=== PATIENT | male | born 1950 | race Caucasian/White ===

== ENCOUNTER 2018-06-20 07:36 | Observation (INO) | payer OTHER ==
--- NOTE | 2018-06-19 16:46 | GHP ---
DATE OF ADMISSION: 06/20/2018 ADMISSION DIAGNOSIS: Benign prostatic hypertrophy with urinary obstruction. HISTORY OF PRESENT ILLNESS: This is a 67-year-old gentleman who has had urologic evaluation for tommy re symptomatic BPH. He has had an AUA score of up to 25. He has had PSAs levels ranging from 4 to t hat most recent of 6.3. He has been on tamsulosin for treatment, but without significant improvement . He had a cystoscopy revealed significant BPH with obstruction. He had a previous post photo vapor ization of prostate. He has had recurring symptoms and obstructions for 5+ years after the original PVP. He had a TRUS biopsy in 2006, that was benign. PAST MEDICAL HISTORY: BPH. SURGERIES: Laser prostatectomy, vasectomy, tonsillectomy, inguinal hernia, and bone surgery. MEDICATIONS: , tamsulosin. ALLERGIES: None. FAMILY HISTORY: Positive for prostate cancer. SOCIAL HISTORY: Nondrinker, nonsmoker. REVIEW OF SYSTEMS: Negative cardiac, respiratory, GI, and endocrine. PHYSICAL EXAMINATION: VITAL SIGNS: Stable. CHEST: Clear. HEART: Regular rate and rhythm. ABDOM EN: Normal. No organomegaly, rebound, or guarding. LOWER EXTREMITIES: Normal. His most recent PS A as of 01/09/2018, was 6.3. He has had a prostate volume on 03/27/2018, of 47.2 g. His transrectal ultrasound has been reviewed, and the intravesical lobe appears to be causing obstruction. He has s ome hypoechoic area on the left side that was identified but problems related to prior surgery, and h e has a ball valving intravesical lobe of the prostate. On cystoscopy, it is quite apparent that he has obstruction from BPH. He has a nice cavity from his prior procedure, but regrowth has shown that he has obstruction, and there is no apparent bladder tumors or stones, and he has had an ExoDx done preoperatively that was 15.62, which was felt to be normal based on his prior history of a biopsy. ASSESSMENT AND PLAN: At the present time, he is admitted for the transurethral resection of the pros chavez. Indication, complications, options have been discussed. Written and verbal consent were obtai perry, and he is admitted for the above procedure. /[id number]/MODL
[2018-06-20] MEDS ORDERED: ceFAZolin 2 GM/DEXTROSE 100 ML IV ONE (12:53)
[2018-06-20] MEDS ORDERED: LR 1,000 ML IV ONE (12:57)
[2018-06-20] MEDS ORDERED: LIDOCAINE 2% JELLY 20 ML (UROJECT) ONE (13:09)
--- NOTE | 2018-06-20 13:20 | PDHPUP ---
History & Physical Update H&P update statement: This history and physical update is based on an assessment of the patient which was completed after admission or registration (within 24 hours), but prior to the surgery/procedure. H&P update: H&P reviewed & patient examined, no change in patient's condition since H&P completed
[2018-06-20] MEDS ORDERED: MIDAZOLAM 2 MG/2 ML VIAL IVP ONE (13:21)
--- NOTE | 2018-06-20 13:22 | PDANEPAE ---
ANE Past Medical History - Cardiovascular History Hx Hypertension: No Hx Arrhythmias: No Hx Chest Pain: No Hx Coronary Artery / Peripheral Vascular Disease: No Hx CHF / Valvular Disease: No Hx Palpitations: No - Pulmonary History Hx COPD: No Hx Asthma/Reactive Airway Disease: No Hx Recent Upper Respiratory Infection: No Hx Oxygen in Use at Home: No Hx Sleep Apnea: No Sleep Apnea Screening Result - Last Documented: Negative - Neurologic History Hx Cerebrovascular Accident: No Hx Seizures: No Hx Dementia: No - Endocrine History Hx Diabetes: No - Renal History Hx Renal Disorders: No Renal History Comment: PROSTATE - Liver History Hx Hepatic Disorders: No - Neurological & Psychiatric Hx Hx Neurological and Psychiatric Disorders: No - Cancer History Hx Cancer: No - Congenital Disorder History Hx Congenital Disorders: No - GI History Hx Gastrointestinal Disorders: Yes Gastrointestinal History Comment: HX ULCERS. IBS - Other Health History Other Health History: NEG - Surgical History Prior Surgeries: GREEN LIGHT PROSTATE. SSUAN HERNIA ING. CATARACTS ANE Review of Systems Review of Systems: - Exercise capacity Exercise capacity: >=4 METS METS (RN): 5 METS ANE Patient History - Allergies Allergies/Adverse Reactions: No Known Allergies Allergy (Verified 06/05/18 10:11) - Home Medications Home medications: home medication list seen and reviewed Home Medications: Dicyclomine [Bentyl 10 MG (*)] 10 mg PO QID PRN 06/05/18 [Last Taken Unknown] Temazepam 06/12/18 [Last Taken Unknown] - NPO status NPO Status: no food or drink >8 hours NPO Since - Liquids (Date): 06/20/18 NPO Since - Liquids (Time): 08:30 NPO Since - Solids (Date): 06/20/18 NPO Since - Solids (Time): 04:30 - Anes Hx Anes Hx: no prior problems - Smoking Hx Smoking Status: Never smoked - Family Anes Hx Family Hx Anesthesia Complications: NEG ANE Labs/Vital Signs - Vital Signs Vital Signs: reviewed preoperatively; see RN documention for details Blood Pressure: 169/100 Heart Rate: 76 Respiratory Rate: 18 O2 Sat (%): 97 Height: 170.18 cm Weight: 58.967 kg ANE Physical Exam - Airway Neck exam: FROM Mallampati Score: Class 1 Mouth exam: normal dental/mouth exam - Pulmonary Pulmonary: clear to auscultation - Cardiovascular Cardiovascular: regular rate and rhythym - ASA Status ASA Status: II ANE Anesthesia Plan Anesthesia Plan: GA w LMA
[2018-06-20] MEDS ORDERED: PROPOFOL 200 MG/20 ML VIAL ONE (13:24)
[2018-06-20] MEDS ORDERED: fentaNYL 100 MCG/2 ML INJ ONE ×3 (13:24→15:25)
[2018-06-20] MEDS ORDERED: MIDAZOLAM 2 MG/2 ML VIAL ONE (13:26)
[2018-06-20] MEDS ORDERED: NALOXONE HCL 0.4 MG/ML INJ IVP PRN (14:40)
[2018-06-20] MEDS ORDERED: DIAZEPAM 5 MG/ML 1 ML SYR IVP PRN (14:40)
[2018-06-20] MEDS ORDERED: ONDANSETRON 4 MG/2 ML VIAL IVP PRN ×2 (14:40→14:50)
[2018-06-20] MEDS ORDERED: LR 500 ML IV PRN (14:40)
[2018-06-20] MEDS ORDERED: HYDROCODONE/APAP 5/325 TAB PO PRN (14:40)
[2018-06-20] MEDS ORDERED: HYDROmorphONE/DILAUDID 2 MG/ML INJ IVP PRN (14:40)
[2018-06-20] MEDS ORDERED: PHENYLEPHRINE HCL 100 MCG/ML SYR IVP PRN (14:40)
[2018-06-20] MEDS ORDERED: ALBUTEROL 3 ML DEYVIAL IH PRN (14:40)
[2018-06-20] MEDS ORDERED: MEPERIDINE 25 MG/0.5 ML AMP IVP PRN (14:40)
[2018-06-20] MEDS ORDERED: DEXAMETHASONE 4 MG/ML VIAL IVP PRN (14:40)
[2018-06-20] MEDS ORDERED: ACETAMINOPHEN 500 MG TAB PO PRN (14:40)
[2018-06-20] MEDS ORDERED: LABETALOL HCL 5 MG/ML 20 ML MDV IVP PRN (14:40)
[2018-06-20] MEDS ORDERED: oxyCODONE IR 5 MG TAB PO PRN (14:40)
[2018-06-20] MEDS ORDERED: PROMETHAZINE HCL 25 MG/ML INJ IVP PRN (14:40)
[2018-06-20] MEDS ORDERED: OPIUM/BELLADONNA ALKALO SUPP PR PRN (14:50)
[2018-06-20] MEDS ORDERED: ZOLPIDEM TARTRATE 5 MG TAB PO PRN (14:50)
[2018-06-20] MEDS ORDERED: ONDANSETRON DISINTEGRATING 4 MG TAB PO PRN (14:50)
[2018-06-20] MEDS ORDERED: ACETAMINOPHEN 325 MG TAB PO PRN (14:50)
--- NOTE | 2018-06-20 14:50 | POSTOPPROG ---
Post Op Note Date of Operation: 06/20/18 (dictated) Surgeon: Kody Kim Anesthesia: LMA Pre-op Diagnosis: bph / obst Procedure: turp Inf/Abcess present in the surg proc area at time of surgery?: No EBL: 50-100 Drains: Other (aguirre) Specimen(s): sent
[2018-06-20] MEDS ORDERED: D5W 1/2 NS 1,000 ML IV SCH (15:00)
--- NOTE | 2018-06-20 15:03 | POSTANESTH ---
Post Anesthetic Evaluation Cardiovascular Status: Normal, Stable Respiratory Status: Normal, Stable Level of Consciousness/Mental Status: Can Participate in Eval, Moderately Sleepy Pain Control: Adequate, Prn Tx Ordered Nausea/Vomiting Control: Adequate, Prn Tx Ordered Complications Possibly Related to Anesthesia: None Noted
--- NOTE | 2018-06-20 15:07 | GOP ---
DATE OF OPERATION: 06/20/2018 SURGEON: Kody Kim MD ANESTHESIA: General anesthesia. PREOPERATIVE DIAGNOSIS: BPH with urinary obstruction. POSTOPERATIVE DIAGNOSIS: BPH with urinary obstruction. PROCEDURE PERFORMED: Transurethral resection of the prostate. FINDINGS: SPECIMENS: Sent to Pathology. He will be admitted for postoperative care. I will discuss the postop course with his family. No complications. ESTIMATED BLOOD LOSS: Less than 200. DESCRIPTION OF PROCEDURE: Gentleman underwent general anesthesia, prepped and draped in normal steri le fashion in dorsal lithotomy position after appropriate time-out. His meatus was dilated to 26-Jose nch, and then, the 26-Moldovan resectoscope passed in the bladder. Bladder had +4 trabeculation. No t umor, stones, or foreign bodies identified, and then, the regrowth of the prostatic adenoma in the pr ostatic fossa was resected, and the right lateral lobe and right portions of posterior lobe resected. Left lateral lobe and left portions of the posterior lobe resected. Bladder was Ellik'd free of al l chips and clots. Visualization revealed no residual chips or clots. Ureteral orifices preserved. External sphincter approximated at the midline symmetrically. Verumontanum preserved. Uro-Jet plac ed in the urethra. A 22 Stephenson catheter passed in the bladder, balloon inflated, traction placed, and irrigated clear. /[id number]/MODL
[2018-06-20] MEDS: fentaNYL 100 MCG/2 ML INJ IVP PRN ×3 (15:27→16:18)
[2018-06-20] MEDS: OXYCODONE/APAP 5/325 TAB PO PRN ×2 (18:39→20:18)
[2018-06-21] MEDS: OXYCODONE/APAP 5/325 TAB PO PRN ×4 (01:25→15:21)
[2018-06-21 11:51] VITALS: BP 118/82
--- NOTE | 2018-06-21 13:21 | SOAPPROG ---
SOAP Progress Note Assessment/Plan: Assessment: BPH w urinary obs/LUTS Acute POD 1, doing well and dc Plan: DC home, follow up in 3 weeks 06/21/18 13:20 Subjective: doing well, no pain Objective: Vital Signs Temp Pulse Resp BP Pulse Ox 36.4 C 67 16 118/82 H 95 06/21/18 11:49 06/21/18 11:49 06/21/18 11:49 06/21/18 11:49 06/21/18 11:49 06/20/18 06/21/18 06/22/18 05:59 05:59 05:59 Intake Total 2110 Output Total 1795 Balance 315 Physical Exam - Physical Exam General Appearance: alert Neck: supple Respiratory: No respiratory distress Back: No CVA tenderness Neuro/Psych: alert, oriented x 3 ICD10 Worksheet Patient Problems: Problems Problem Status Onset BPH w urinary obs/LUTS Acute - ICD10 Problem Qualifiers (1) BPH w urinary obs/LUTS
--- NOTE | 2018-06-21 15:55 | ASMTDCNOTE ---
Case Management Discharge Discharge Order Complete? Answers: Yes Patient to Obtain Answers: via Family Medications Transportation Arranged Answers: Family/Friends Discharge Comments Notes: Pt is being discharged independently. Family to transport. No CM needs identified at this time. Date Signed: 06/21/2018 03:54 PM Electronically Signed By:TRICIA Doyle
--- NOTE | 2018-06-21 16:01 | ASMTLACE ---
LACE Length of stay for Answers: 1 day current admission Acuity / Level of Answers: No Care: Did the patient have an inpatient admission? Comorbidities - select Answers: Other Notes: BPH all that apply # of Emergency department Answers: 0 visits in the last 6 months Score: 2 Date Signed: 06/21/2018 04:01 PM Electronically Signed By:TRICIA Doyle
--- NOTE | 2018-06-21 16:04 | ASDISCHSUM ---
Discharge Information Plan Status:Home with No Needs Medically Cleared to Leave:06/20/2018 Discharge Date:06/20/2018 CM D/C Disposition:Home, Routine, Self-Care ADT D/C Disposition:Home, Routine, Self-Care Projected Discharge Date:06/21/2018 12:00 AM Transportation at D/C:Family Discharge Delay Reason: Follow-Up Date:06/21/2018 12:00 AM Discharge Slot: Final Diagnosis: Placement Information Patient Contact Information Contact Name:CLEM Relationship: Address:[address] [place] [facility] City:[place] Alternate Phone: State/Zip Code:[place] [address] Email: Financial Information Financial Class:Medicare Primary Plan Desc:MEDICARE OUTPATIENT Primary Plan Number:[id number] Secondary Plan Desc:LESTER Secondary Plan Number:[id number] Assessment Information Case Management Discharge Plan Note Case Management Discharge Discharge Order Complete? Answers: Yes Patient to Obtain Answers: via Family Medications Transportation Arranged Answers: Family/Friends Discharge Comments Notes: Pt is being discharged independently. Family to transport. No CM needs identified at this time. Date Signed: 06/21/2018 03:54 PM Electronically Signed By:TRICIA Doyle LACE LACAnaya Length of stay for Answers: 1 day current admission Acuity / Level of Answers: No Care: Did the patient have an inpatient admission? Comorbidities - select Answers: Other Notes: BPH all that apply # of Emergency department Answers: 0 visits in the last 6 months Score: 2 Date Signed: 06/21/2018 04:01 PM Electronically Signed By:TRICIA Doyle Intervention Information Intervention Type:*Incorrect Registration Date of Service:06/20/2018 07:15 PM Patient Type:Observation Staff Member:Hazel Gandhi Hours: Discipline: Severity: Comment: Intervention Type:*IM-Signed Date of Service:06/21/2018 03:55 PM Patient Type:Observation Staff Member:TRICIA Hurst Ema Hours: Discipline: Severity: Comment:
== END 2018-06-21 16:16 | disposition home or self-care (01) ==
LOC: INTOOBSV 12:19 → F1N 12:19 → CEDHOLD 12:19 → F1N 16:47
PROVIDERS: ADMIT Specialist; ATTEND Specialist
PROC: 0VT08ZZ Resection of Prostate, Via Natural or Artificial Opening Endoscopic (ICD-10-PCS; principal; 2018-06-20 13:15)
DX: N40.1 Benign prostatic hyperplasia with lower urinary tract symptoms (principal); R35.0 Frequency of micturition; R35.1 Nocturia; N13.8 Other obstructive and reflux uropathy; Z80.42 Family history of malignant neoplasm of prostate
CPT/HCPCS: 52630; 88305; J0690; J2250; J2704; J3010